=== PATIENT | female | born 1960 | race Caucasian/White ===

== ENCOUNTER → 2018-10-06 16:59 | Outpatient (CLI) | payer MEDICARE, SELFPAY ==
[2017-08-12 11:59] VITALS: BMI 22.8
[2018-10-06 18:09] LABS: Amphetamine Urine VISTA NEGATIVE (<1000 ng/mL); Barbiturate Urine VISTA NEGATIVE (< 200 ng/mL); Benzodiazepine Urine VISTA POSITIVE (< 200 ng/mL); Cocaine Urine VISTA NEGATIVE (< 300 ng/mL); Ecstacy Urine VISTA NEGATIVE (< 500 ng/mL); Methadone Urine VISTA NEGATIVE (< 300 ng/mL); PCP Urine VISTA NEGATIVE (< 25 ng/mL); THC Urine VISTA NEGATIVE (< 50 ng/mL); Vista UDS pH Range 4
== END ==
PROVIDERS: Family Provider Internal Medicine; PCP Internal Medicine; Referring Provider Anesthesiology Pain Medicine; Visit Provider Anesthesiology Pain Medicine
DX: F11.20 Opioid dependence, uncomplicated (principal)
CPT/HCPCS: 80307

== ENCOUNTER → 2018-11-09 09:28 | Outpatient (CLI) | payer MEDICARE, SELFPAY ==
--- NOTE | 2018-11-09 09:38 | MRI_ITS ---
HISTORY: LBP Lower Back Painchronic low back pain, 5 prev lumbar surgeries- last sx 10 years ago, pain low back and left hip and leg x 7 months EXAM/TECHNIQUE: MR Spine Lumbar W/O Contrast: 1.5 [place], multiplanar multisequence. COMPARISON: 02/15/17 MRI lumbar spine. FINDINGS: # of images incl. paperwork: 126 No fracture or acute signal changes in the vertebrae. Mild, 2 mm, degenerative anterolisthesis of L3 on L4, and mild degenerative signal changes in the L3-4 endplates, are new compared to prior. Laminectomy, posterior fusion and discectomy L4-5 again demonstrated. Interval progression of disc degeneration at L5-S1 with increase in disc space loss and mild degenerative endplate signal changes and irregularity. Conus medullaris terminates at the level of the L1 inferior endplate with normal contour and signal. The paraspinal soft tissues are unremarkable. At L1-2 and L2-3, moderate facet degeneration causes no significant narrowing. At L3-4, diffuse disc bulge has increased slightly in size, and there is now mild unroofing of the disc secondary to mild degenerative anterolisthesis at this level. Persistent prominent bilateral facet degeneration as well. Disc now abuts, but does not compress, the traversing bilateral L4 nerve roots in the subarticular zones. Disc also extends into and narrows the left greater than right foramina, worse compared to prior, with mild mass-effect upon the exiting right and moderate mass-effect upon the exiting left L3 nerve roots. At L4-5, the spinal canal is decompressed via laminectomy and discectomy. There is no significant foraminal narrowing. At L5-S1, there is no significant narrowing. MRI/Spine Lumbar (Routine) IMPRESSION: Interval progression of degenerative changes at L3-4, cephalad to the fusion. There is now mild degenerative anterolisthesis at this level, with increase in size of diffuse disc bulge. Disc extends into a moderately narrows the left foramen with moderate mass-effect upon the exiting left L3 nerve root; please correlate for left L3 radiculopathy. Slight interval progression of disc degeneration at L5-S1. Otherwise similar to previous, status post L4-5 laminectomy discectomy and posterior fusion. at 1202 Reported and signed by: rGeg Peres MD Electronically Signed: Greg Peres, at 12:01 EST Tel , Service support ,
== END ==
PROVIDERS: Family Provider Internal Medicine; PCP Internal Medicine; Referring Provider Anesthesiology Pain Medicine; Visit Provider Anesthesiology Pain Medicine
DX: M54.9 Dorsalgia, unspecified (principal); M79.606 Pain in leg, unspecified
CPT/HCPCS: 72148

== ENCOUNTER → 2019-11-16 17:31 | Outpatient (CLI) | payer MEDICARE, SELFPAY ==
[2017-08-12 11:59] VITALS: BMI 22.8
[2019-11-16 19:06] LABS: Amphetamine Urine VISTA NEGATIVE (<1000 ng/mL); Barbiturate Urine VISTA NEGATIVE (< 200 ng/mL); Benzodiazepine Urine VISTA POSITIVE (< 200 ng/mL); Cocaine Urine VISTA NEGATIVE (< 300 ng/mL); Ecstacy Urine VISTA NEGATIVE (< 500 ng/mL); Methadone Urine VISTA NEGATIVE (< 300 ng/mL); PCP Urine VISTA NEGATIVE (< 25 ng/mL); THC Urine VISTA NEGATIVE (< 50 ng/mL); Vista UDS pH Range 6
== END ==
PROVIDERS: PCP Internal Medicine; Referring Provider Anesthesiology Pain Medicine; Visit Provider Anesthesiology Pain Medicine
DX: F11.20 Opioid dependence, uncomplicated (principal)
CPT/HCPCS: 36415; 80307

== ENCOUNTER → 2020-07-30 12:55 | Outpatient (CLI) | payer MEDICARE, SELFPAY ==
[2020-07-30 13:58] LABS: Amphetamine Urine VISTA NEGATIVE (<1000 ng/mL); Barbiturate Urine VISTA NEGATIVE (< 200 ng/mL); Benzodiazepine Urine VISTA POSITIVE (< 200 ng/mL); Cocaine Urine VISTA NEGATIVE (< 300 ng/mL); Ecstacy Urine VISTA NEGATIVE (< 500 ng/mL); Methadone Urine VISTA NEGATIVE (< 300 ng/mL); PCP Urine VISTA NEGATIVE (< 25 ng/mL); THC Urine VISTA POSITIVE (< 50 ng/mL); Vista UDS pH Range 6
== END ==
PROVIDERS: PCP Internal Medicine; Referring Provider Anesthesiology Pain Medicine; Visit Provider Anesthesiology Pain Medicine
DX: F11.20 Opioid dependence, uncomplicated (principal)
CPT/HCPCS: 80307

== ENCOUNTER → 2020-11-14 15:22 | Outpatient (CLI) | payer MEDICARE, SELFPAY ==
[2017-08-12 11:59] VITALS: BMI 22.8
[2020-11-14 16:51] LABS: Amphetamine Urine VISTA NEGATIVE (<1000 ng/mL); Barbiturate Urine VISTA NEGATIVE (< 200 ng/mL); Benzodiazepine Urine VISTA POSITIVE (< 200 ng/mL); Cocaine Urine VISTA NEGATIVE (< 300 ng/mL); Ecstacy Urine VISTA NEGATIVE (< 500 ng/mL); Methadone Urine VISTA NEGATIVE (< 300 ng/mL); PCP Urine VISTA NEGATIVE (< 25 ng/mL); THC Urine VISTA NEGATIVE (< 50 ng/mL); Vista UDS pH Range 7
== END ==
PROVIDERS: PCP Internal Medicine; Referring Provider Anesthesiology Pain Medicine; Visit Provider Anesthesiology Pain Medicine
DX: F11.20 Opioid dependence, uncomplicated (principal)
CPT/HCPCS: 80307

== ENCOUNTER → 2023-01-05 | Outpatient (CLI) | payer MEDICARE, SELFPAY ==
[2023-01-05 12:06] LABS: Amphetamine Urine VISTA NEGATIVE (<1000 ng/mL); Barbiturate Urine VISTA NEGATIVE (< 200 ng/mL); Benzodiazepine Urine VISTA POSITIVE (< 200 ng/mL); Cocaine Urine VISTA NEGATIVE (< 300 ng/mL); Ecstacy Urine VISTA NEGATIVE (< 500 ng/mL); Methadone Urine VISTA NEGATIVE (< 300 ng/mL); PCP Urine VISTA NEGATIVE (< 25 ng/mL); THC Urine VISTA POSITIVE (< 50 ng/mL); Vista UDS pH Range 6
== END | disposition home or self-care (01) ==
LOC: LAB 11:22
PROVIDERS: PCP Internal Medicine; Referring Provider Anesthesiology Pain Medicine; Visit Provider Anesthesiology Pain Medicine
DX: F11.20 Opioid dependence, uncomplicated (principal)
CPT/HCPCS: 80307

== ENCOUNTER → 2024-02-04 | Outpatient (CLI) | payer MEDICARE, SELFPAY ==
--- NOTE | 2024-02-04 16:25 | MRI_ITS ---
STUDY: MRI THORACIC SPINE WITHOUT CONTRAST REASON FOR EXAM: Female, 63 years old. RADICULOPATHY, COMPARE TO PRIOR 2017 TECHNIQUE: Standardized fat and water weighted pulse sequences were obtained in the sagittal and axial planes. COMPARISON: 01/29/2017 FINDINGS: There is an increased kyphosis of the thoracic spine. There is no substantial scoliosis. T1-2, T2-3, T3-4, T4-5, T5-6, T6-7, T7-8, T8-9, T9-10, T10-11, T11-12: At T6/T7, there is no change in the small central disc protrusion without cord compression. At T7/T8, there is no change in the small right paracentral disc protrusion but no cord compression. At T8/T9, there is no change in the small right paracentral disc protrusion produce mild spinal stenosis but no cord compression. At T10/T11, there is been interval development of a mild bilobed disc protrusion which produces mild spinal stenosis but no cord compression. Normal visualized thoracic cord. Normal conus medullaris that terminates at the L1.. The soft tissue structures are unremarkable. MRI/Spine Thoracic (Routine) IMPRESSION: Mild degenerative disc disease of the thoracic spine worsened at T10/T11 but no cord compression. Electronically Signed: Brad Carter MD at 20:08 EDT ,
== END | disposition home or self-care (01) ==
LOC: MRI 16:07
PROVIDERS: PCP Internal Medicine; Referring Provider Anesthesiology Pain Medicine; Visit Provider Anesthesiology Pain Medicine
DX: M54.15 Radiculopathy, thoracolumbar region (principal)
CPT/HCPCS: 72146

== ENCOUNTER → 2024-09-04 | Outpatient (CLI) | payer MEDICARE, SELFPAY ==
--- NOTE | 2024-09-04 14:25 | RAD_ITS ---
INDICATION: HIP PAIN EXAMINATION/TECHNIQUE: X-RAY - XR Hips Bilateral with Pelvis when performed; 5 Views COMPARISON: Bilateral hip radiographs dated 05/22/2011. FINDINGS: PELVIC BONES: No displaced fracture, destructive or sclerotic lesions. Note that overlapping bowel shadows may however obscure fine detail. Sacroiliac joints are unremarkable. No widening of the pubic symphysis. There is fusion hardware at L4-5 on the right and fusion hardware on the left at L3-5. HIPS: There is mild degenerative arthrosis of the hip joints bilaterally. No displaced fracture. SOFT TISSUES: There are multiple small calcified phleboliths in the pelvis. No soft tissue swelling or gas. RAD/Hips B/L min 2 views w/ Pelvis IMPRESSION: Mild degenerative arthrosis of the hip joints bilaterally. No evidence of displaced pelvic or hip fracture. Electronically Signed: Ti Brink MD at 14:33 EST ,
== END | disposition home or self-care (01) ==
PROVIDERS: PCP Internal Medicine; Referring Provider Anesthesiology Pain Medicine; Visit Provider Anesthesiology Pain Medicine
DX: M25.551 Pain in right hip (principal); M25.552 Pain in left hip
CPT/HCPCS: 73521

== ENCOUNTER → 2024-10-03 | Outpatient (CLI) | payer MEDICARE, SELFPAY ==
--- NOTE | 2024-10-03 16:40 | MRI_ITS ---
HISTORY: Postlaminectomy syndrome. TECHNIQUE: Multiplanar and multisequence MR images of the lumbar spine were obtained before and after the intravenous administration of 9 mL Clariscan. 203 images. COMPARISON: 11/09/2018. FINDINGS: VERTEBRAE: Vertebral body heights maintained. Mild degenerative endplate changes at T10-11. L3-5 posterior spinal fusion hardware with chronic endplate changes. No other significant bone marrow signal abnormality. ALIGNMENT: No anterior or posterior subluxation. SPINAL CANAL: Normal morphology and position of the conus medullaris at the L1 level. No epidural collection or enhancing intradural extramedullary mass. INTERVERTEBRAL DISCS: T12-L1: No significant signal abnormality, posterior disc protrusion, central canal stenosis, or foraminal narrowing based on the sagittal images. L1-2: No significant posterior disc protrusion or central canal stenosis. Facet arthropathy without significant foraminal narrowing L2-3: Minimal left foraminal disc protrusion and facet arthropathy without significant central canal stenosis. Very mild left foraminal narrowing. L3-4: Interval placement of interbody fusion material. No significant central canal stenosis. Residual degenerative change with decreased bilateral foraminal narrowing. L4-5: Interbody fusion material decompressive laminectomy. No significant central canal stenosis residual degenerative change with mild bilateral foraminal narrowing again seen. L5-S1: No significant posterior disc protrusion, central canal stenosis, or foraminal narrowing. SOFT TISSUES: No paraspinal fluid collection. MRI/Spine Lumbar W/WO Contrast IMPRESSION: Interval L3-4 posterior spinal fusion with reduction of the mild listhesis and decreased stenosis. No significant interval change in appearance of L4-5 posterior spinal fusion. Mild degenerative change without significant spinal canal stenosis. Electronically Signed: Huong Walker MD at 16:03 EST ,
[2024-10-03 17:16] LABS: CREATININE FINGERSTICK < 1.0 mg/dL (0.55-1.02); EGFR FINGERSTICK > 60.0000 mL/min (>60)
== END | disposition home or self-care (01) ==
PROVIDERS: PCP Internal Medicine; Referring Provider Orthopaedic Surgery Orthopaedic Surgery of the Spine; Visit Provider Anesthesiology Pain Medicine
DX: M96.1 Postlaminectomy syndrome, not elsewhere classified (principal)
CPT/HCPCS: 72158; A9575

== ENCOUNTER → 2025-07-10 | Outpatient (CLI) | payer MEDICARE, SELFPAY ==
[2025-07-10 18:02] LABS: Barbiturate Urine NEGATIVE (< 200 ng/mL); Benzodiazepine Urine PRESUMPTIVE POSITIVE (< 200 ng/mL); PCP Urine NEGATIVE (< 25 ng/mL); THC Urine PRESUMPTIVE POSITIVE (< 50 ng/mL)
== END | disposition home or self-care (01) ==
PROVIDERS: PCP Internal Medicine; Referring Provider Anesthesiology Pain Medicine; Visit Provider Anesthesiology Pain Medicine
DX: F11.20 Opioid dependence, uncomplicated (principal)
CPT/HCPCS: 80307